=== PATIENT | female | born 1990 | race African-American/Black ===

== ENCOUNTER 2021-10-08 06:21 | Emergency (ER) | payer MEDICAID ==
[~2021-10-08] VITALS: Ht 182.9 cm; Wt 158.8 kg
[2021-10-08] MEDS ORDERED: DOXYCYCLINE HY100 MG PO (06:56)
[2021-10-08] MEDS ORDERED: PROBIOTIC & AC1 EACH PO (06:56)
[2021-10-08] MEDS ORDERED: IBUPROFEN200 MG PO (06:56)
[2021-10-08] MEDS ORDERED: CLEOCIN HCL300 MG PO (06:56)
== END 2021-10-08 07:04 | disposition home or self-care (01) ==
LOC: FSED 06:49
DX: L73.2 Hidradenitis suppurativa (principal)
CPT/HCPCS: 99282